=== PATIENT | female | born 1955 | race Caucasian/White ===

== ENCOUNTER 2022-08-19 20:27 | Emergency (ER) | payer MEDICARE ==
[2022-08-19] MEDS ORDERED: hydrALAZINE 20 MG/ML VIAL ONE (20:54)
[2022-08-19] MEDS ORDERED: Insulin Regular 300 UNITS/3 ML VIAL ONE (20:54)
[2022-08-19 21:05] LABS: #Basophils 0.1 thou/uL (0.0-0.2); #Eosinphils 0.1 thou/uL (0.0-0.7); #Lymphocytes 4.4 thou/uL (1.20-3.40); #Monocytes 0.6 thou/uL (0.11-0.59); %Basophils 0.9 % (0.0-1.0); %Eosinophils 1.1 % (0.0-10.0); %Lymphocytes 43.3 % (21.0-51.0); %Monocytes 5.7 % (0.0-10.0); Hemoglobin 15.2 g/dL (12.0-16.0); Mean Corpuscular HGB CONC 31.8 g/dL (32.0-36.0); Mean Corpuscular Volume 94.4 fl (78.0-98.0); Mean Platelet Volume 6.6 fL (7.4-10.4); Platelet Count 296 10x3/uL (130-400); RBC Distribution Width 12.6 % (11.5-14.5); Red Blood Cell (RBC) Count 5.05 mill/uL (4.20-5.40); White Blood Cell (WBC) Count 10.1 10x3/uL (4.8-10.8)
[2022-08-19] MEDS ORDERED: Acetaminophen 500 MG TAB ONE (21:20)
[2022-08-19] MEDS ORDERED: Sodium Chloride 0.9% 1,000 ML ONE (21:21)
[2022-08-19 21:22] LABS: ALT (SGPT) 32 U/L (8-55); AST (SGOT) 39 U/L (5-34); Albumin 4.7 g/dL (3.4-4.8); Alkaline Phosphatase 78 U/L (40-110); Anion Gap 22 mmol/L (10-20); BUN (Urea Nitrogen) 32 mg/dL (9.8-20.1); Bilirubin, Total 0.8 mg/dL (0.2-1.2); CK (CPK) 172 U/L (29-168); Calc. Creatinine Clearance 0 mL/min (70-130); Calcium 9.7 mg/dL (7.8-10.44); Carbon Dioxide 19 mmol/L (23-31); Chloride 98 mmol/L (98-107); Estimated GFR 31; Globulin 3.5 g/dL (2.4-3.5); Glucose 399 mg/dL (80-115); Magnesium 2.1 mg/dL (1.6-2.6); Potassium 4.1 mmol/L (3.5-5.1); Protein, Total 8.2 g/dL (5.8-8.1); Sodium 135 mmol/L (136-145)
[2022-08-19 22:34] LABS: Bilirubin Negative (Negative); Blood, Urine Negative (Negative); Clarity Clear (Clear); Glucose, Urine (Dipstick) >=1000 mg/dL (Negative); Ketone, Urine Negative (Negative); Leukocyte Negative (Negative); Nitrite Negative (Negative); Protein, Urine (Dipstick) 30 mg/dL (Neg-Trace); Urobilinogen 0.2 mg/dL (Less than 2); pH, Urine 5.5 (5.0-9.0)
[2022-08-19 22:36] LABS: RBC/HPF None Seen HPF (0-3); Squamous Epithelial 0-3 HPF (0-3); WBC/HPF 0-3 HPF (0-3)
[2022-08-19] MEDS ORDERED: Metoprolol Tartrate 25 MG TAB ONE ×2 (23:41→23:52)
[2022-08-19] MEDS ORDERED: Morphine 4 MG/ML VIAL ONE (23:41)
== END 2022-08-20 00:35 | disposition home or self-care (01) ==
LOC: NAV ERS 20:27
DX: I10 Essential (primary) hypertension (principal); E11.65 Type 2 diabetes mellitus with hyperglycemia; E78.00 Pure hypercholesterolemia, unspecified; Z79.899 Other long term (current) drug therapy; Z20.822 Contact with and (suspected) exposure to COVID-19
CPT/HCPCS: 36416; 80053; 81003; 81015; 82010; 82550; 83735; 83880; 84443; 84484; 85025; 87081; 87430; 87804; 93005; 96361; 96374; 96375; 36415-59; J0360; J1815; J2270; J7050; U0003; U0005